=== PATIENT | female | born 1995 | race Caucasian/White ===

== ENCOUNTER 2017-04-29 20:46 | Emergency (ER) | payer BC ==
[2017-04-29 20:51] VITALS: BP 142/75
--- NOTE | 2017-04-29 22:48 | ED ---
Throat Pain/Nasal Congestion - HPI Summary HPI Summary: Pt here w/ Rt eye redness, swelling, pain and purulent d/c x 2 days. Stuck shut this morning. 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 This pt reports she wears contacts but hasn't used them since eye started to bother her. She also has been using makeup (ie. mascara, eye liner, etc). Denies photosensitivity, blurred vision, otalgia, neck pain, HARRIS. - History of Current Complaint Chief Complaint: EDEyeProblem Time Seen by Provider: 04/29/17 21:59 Hx Obtained From: Patient - Allergies/Home Medications Allergies/Adverse Reactions: Allergies Allergy/AdvReac Type Severity Reaction Status Date / Time No Known Allergies Allergy Verified 04/29/17 20:50 PMH/Surg Hx/FS Hx/Imm Hx Previously Healthy: Yes Endocrine/Hematology History: Denies: Autoimmune Disease Infectious Disease History: No Infectious Disease History: Denies: Traveled Outside the [place] in Last 30 Days - Family History Known Family History: Positive: None - Social History Occupation: Student Lives: Dormitory/Roommates Alcohol Use: Weekly Hx Substance Use: No Substance Use Type: Reports: None Hx Tobacco Use: Yes Smoking Status (MU): Current Some Day Smoker - occasionally Review of Systems Constitutional: Negative Negative: Fever, Chills, Fatigue Eyes: Other - see HPI ENT: Negative Negative: Sore Throat, Ear Ache, Nasal Discharge Cardiovascular: Negative Respiratory: Negative Gastrointestinal: Negative Positive: no symptoms reported Musculoskeletal: Negative Skin: Negative Neurological: Negative Psychological: Normal All Other Systems Reviewed And Are Negative: Yes Physical Exam Triage Information Reviewed: Yes Vital Signs On Initial Exam: Initial Vitals Temp Pulse Resp BP Pulse Ox 97.5 F 84 16 142/75 100 04/29/17 20:48 04/29/17 20:48 04/29/17 20:48 04/29/17 20:48 04/29/17 20:48 Vital Signs Reviewed: Yes Appearance: Positive: Well-Appearing, No Pain Distress, Well-Nourished Skin: Positive: Warm, Dry - Rt superior and inferior palpebra are w/ mild edema and purulent drainage, crusting lashes - no lesions on skin or cornea Head/Face: Positive: Normal Head/Face Inspection - Sinuses NTTP Eyes: Positive: EOMI, TICO, Conjunctiva Inflammed, Discharge - purulent Rt eye ENT: Positive: Hearing grossly normal, TMs normal. Negative: Nasal congestion, Nasal drainage Neck: Positive: Supple, Nontender, No Lymphadenopathy Respiratory/Lung Sounds: Positive: Breath Sounds Present Cardiovascular: Positive: Normal, RRR Musculoskeletal: Positive: Normal, Strength/ROM Intact Neurological: Positive: Normal, Sensory/Motor Intact, Alert, Oriented to Person Place, Time, CN Intact II-III Psychiatric: Positive: Normal Diagnostics - Vital Signs Vital Signs Temp Pulse Resp BP Pulse Ox 04/29/17 20:48 97.5 F 84 16 142/75 100 - Laboratory Lab Statement: Any lab studies that have been ordered have been reviewed, and results considered in the medical decision making process. EENT Course/Dx - Diagnoses Provider Diagnoses: Bacterial conjunctivitis of right eye Discharge - Discharge Plan Condition: Stable Disposition: HOME Prescriptions: Ciprofloxacin 0.3% OPTH.CARIN* [Cipro 0.3% Opth*] 2 drop RIGHT EYE Q4H #1 btl Patient Education Materials: Conjunctivitis (ED) Referrals: [facility] [Primary Care Provider] - Vinicius Henson MD [Medical Doctor] - Additional Instructions: Use antibiotic eye drops as directed Rinse eye with saline eye wash before placement of antibiotic drops to aid in clearing drainage DO NOT WEAR CONTACTS until antibiotics are complete and eye is completely healed Stop using eye makeup - discard and purchase new to be used once eye is healed *If you have persistent infection, follow-up with eye doctor - call to schedule an appointment
[2017-04-29] MEDS ORDERED: Ciprofloxacin 0.3% OPTH.SOL* 2.5 ML BTL RIGHT EYE ONE (22:52)
[2017-04-30] MEDS ORDERED: Ciprofloxacin 0.3% OPTH.SOL* 2.5 ML BTL RIGHT EYE ONE (22:57)
== END 2017-04-29 23:11 | disposition home or self-care (01) ==
LOC: ED 20:46
DX: H10.31 Unspecified acute conjunctivitis, right eye (principal); Z72.0 Tobacco use
CPT/HCPCS: 99282; A9270-GY